=== PATIENT | female | born 1965 | race Caucasian/White ===

== ENCOUNTER → 2017-10-07 | Outpatient (CLI) | payer BC ==
[2017-10-07 15:04] VITALS: BP 112/68; PULSE 53; RESP 18; TEMP 98.1; BMI 39.4
--- NOTE | 2017-10-07 15:34 | P.HPOB ---
History of Present Illness H&P Date: 10/07/17 Chief Complaint: The patient is here for her routine gynecologic exam and mammogram. This is a 51-year-old with an LMP of 05/2015. The patient denies any significant hot flashes. She denies any postmenopausal bleeding. Her is status post vasectomy. Review of Systems The patient has lost 8 pounds over the last year. She denies respiratory, cardiac, or G.I. problems. Past Medical History Past Medical History: GERD/Reflux, Hyperlipidemia Additional Past Medical History / Comment(s): Arthritis. 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 Past OB history: she had a voluntary interruption of because of multiple defects. She also had one spontaneous . One vaginal delivery. History of Any Multi-Drug Resistant Organisms: None Reported Past Surgical History: Bariatric Surgery (Lap band), Cholecystectomy, Orthopedic Surgery (Ankle surgery) Additional Past Surgical History / Comment(s): patient donated left kidney. Colonoscopy 2010. Past Psychological History: Depression (Seasonal affective disorder.) Smoking Status: Never smoker Past Alcohol Use History: Occasional (7 per week) Additional Past Alcohol Use History / Comment(s): She denies any medical marijuana, marijuana, street drug use. She lives at home with her and daughter. 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 - Past Family History Father Family Medical History: Cancer (colon), Myocardial Infarction ([place]) Additional Family Medical History / Comment(s): Father at age 81 with history of colon cancer and coronary artery disease. Mother Additional Family Medical History / Comment(s): Mother is alive at age 76 with no major medical problems. Sister(s) Additional Family Medical History / Comment(s): Patient has 3 sisters and 1 brother with no major medical problems. Patient has one daughter with no major medical problems. Medications and Allergies Home Medications Medication Instructions Recorded Confirmed Type Omeprazole [PriLOSEC] 40 mg PO DAILY 08/25/15 10/07/17 History Simvastatin [Zocor] 20 mg PO HS 08/25/15 10/07/17 History buPROPion XL [Wellbutrin XL] 150 mg PO DAILY 08/25/15 10/07/17 History Cyclobenzaprine [Flexeril] 10 mg PO TID PRN 08/30/15 10/07/17 History Allergies Allergy/AdvReac Type Severity Reaction Status Date / Time adhesive tape Allergy Rash/Hives Verified 10/07/17 15:06 Exam Vital Signs Temp Pulse Resp BP 10/07/17 14:55 98.1 F 53 L 18 112/68 Intake and Output 10/07/17 10/07/17 10/07/17 06:59 14:59 22:59 Other: Weight 101.151 kg Height 5'3", BMI 39.5. This is a well-developed well-nourished heavyset white female who is alert and oriented times 3 in no acute distress. HEENT: Within normal limits. NECK: Supple without mass or thyromegaly. CHEST AND LUNGS: Clear to auscultation. HEART: Regular rate and rhythm. BREASTS: Are without mass or discharge. AXILLARY EXAM: Negative for adenopathy. BACK: Negative for CVA tenderness. ABDOMEN: Soft, obese, nontender, without palpable masses. PELVIC EXAM: Normal external genitalia with minimal atrophy. Cervix and vagina appear normal with minimal atrophy. There is no unusual discharge. There is no evidence of prolapse. The uterus is midposition, nongravid size and nontender. There are no palpable adnexal masses or tenderness. RECTAL EXAM: rectovaginal exam is negative for mass or tenderness and is negative for occult blood. EXTREMITIES: Nontender. IMPRESSION: 1. 51-year-old menopausal female normal gynecologic exam. PLAN: 1. Pap smear was deferred since she had a normal one less than 2 years ago. 2. Self breast awareness was discussed. 3. Mammogram will be done today. 4. Osteoporosis prevention was discussed. 5. She will return in one year.
--- NOTE | 2017-10-13 13:46 | MM ---
Reason for exam: screening (asymptomatic). Last mammogram was performed 1 year and 9 months ago. History: Patient had first child at age 40. Took hormonal contraceptives for 3 years 6 months beginning at age 35. Physical Findings: A clinical breast exam by your physician is recommended on an annual basis and results should be correlated with mammographic findings. MG 3D Screening Mammo W/Cad Bilateral CC and MLO view(s) were taken. Prior study comparison: January 09, 2016, bilateral MG 3d screening mammo w/cad. September 21, 2013, bilateral MG screening mammo w CAD. The breast tissue is almost entirely fat. No significant changes when compared with prior studies. ASSESSMENT: Benign, BI-RAD 2 RECOMMENDATION: Routine screening mammogram of both breasts in 1 year.
== END | disposition home or self-care (01) ==
LOC: WWCWWP 14:41
PROVIDERS: ATTEND Obstetrics & Gynecology
DX: Z12.31 Encounter for screening mammogram for malignant neoplasm of breast (principal)
CPT/HCPCS: 77063; 77067

== ENCOUNTER → 2018-03-16 | Outpatient (CLI) | payer BC ==
--- NOTE | 2018-03-16 14:37 | P.HPBAR ---
Bariatric H&P - History & Physicial H&P Date: 03/16/18 History & Physicial: Visit/CC: Patient initial contact: Initial weight: 112.945 kg Initial weight in pounds: Height: Initial BMI: Last weight: Current weight: Current weight in pounds: Current BMI: [place] body weight (based on NIH guidelines): Excess body weight loss: The patient is a 52 year-old F who presents for Bariatric Assessment. Patient presents today. She is at issues with reflux. Her band is empty. The reflux has been going on for over 6 months. Past Medical History Past Medical History: GERD/Reflux, Hyperlipidemia Additional Past Medical History / Comment(s): Arthritis. 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 Past OB history: she had a voluntary interruption of because of multiple defects. She also had one spontaneous . One vaginal delivery. History of Any Multi-Drug Resistant Organisms: None Reported Past Surgical History: Bariatric Surgery (Lap band), Cholecystectomy, Orthopedic Surgery (Ankle surgery) Additional Past Surgical History / Comment(s): patient donated left kidney. Colonoscopy 2010. Past Psychological History: Depression (Seasonal affective disorder.) Smoking Status: Never smoker Past Alcohol Use History: Occasional (7 per week) Additional Past Alcohol Use History / Comment(s): She denies any medical marijuana, marijuana, street drug use. She lives at home with her and daughter. Past Drug Use History: None Reported - Past Family History Father Family Medical History: Cancer (colon), Myocardial Infarction ([place]) Additional Family Medical History / Comment(s): Father at age 81 with history of colon cancer and coronary artery disease. Mother Additional Family Medical History / Comment(s): Mother is alive at age 76 with no major medical problems. Sister(s) Additional Family Medical History / Comment(s): Patient has 3 sisters and 1 brother with no major medical problems. Patient has one daughter with no major medical problems. Surgical - Exam - General well developed, well nourished, no distress - Eyes PERRL - ENT normal pinna - Neck no masses - Respiratory normal expansion - Cardiovascular Rhythm: regular - Abdomen Abdomen: soft, non tender Bariatric Assessment & Plan Plan: Dysphagia and reflux with empty LAP-BAND. Patient will undergo esophagram today. She may require explantation of her LAP-BAND device. Bariatric Checklist Checklist: Plan: Checklist: EGD: 1. Hiatal hernia: 2. H. Pylori: HgbA1c: Vitamin D: Smoking: Never smoker Primary care physician referral: Psychiatry clearance: Cardiology clearance: Sleep study: Diet journal: VTE risk score: VTE risk level: Rehab needs at discharge:
[2018-03-16 15:07] VITALS: BP 138/85; PULSE 85; TEMP 98.2; BMI 38.0
--- NOTE | 2018-03-16 15:14 | FL ---
"EXAMINATION TYPE: FL barium swallow DATE OF EXAM: 03/16/2018 LAP BANDING LIMITED ESOPHAGRAM: CLINICAL HISTORY: History of lap band placed 2002 with dysphagia, GERD, and difficulty swallowing ov er last several months, all fill removed several months ago without improvement. TECHNIQUE: Limited esophagram is performed utilizing 2-3 oz of ez paque. A total of 68 seconds of fl uoroscopic time was utilized during procedure. 18 images are sent to PACS. COMPARISON: CT abdomen and pelvis August 26, 2015 and prior esophagram August 24, 2015. FINDINGS: Pre-procedure manager department image shows lap band in stable and satisfactory position and angle i n proximal stomach just below the gastroesophageal junction. Cholecystectomy clips are redemonstrated . The patient then drank oral contrast. There could flow of contrast along the course of the esophagus. There is marked delay in flow of contrast along the course of the lap band, there is no evidence of contrast extravasation to suggest leak. There is constant reflux of contrast up to proximal esophagea l level with esophageal dilatation. Patient has symptoms of nausea. Approximately 15 to [address] drinking contrast only small trickle of contrast through the lap band into distal stomach is iden tified, majority of contrast remains in mid to distal esophagus extending up to level of aortic arch. IMPRESSION: There is severe obstruction at lap band site without convincing evidence of lap band slip page. Images saved for ordering surgeon. A Yellow level critical message alert has been initiated for Jamie Holden MD via the [facility] | Critical Results System on 03/16/2018 3:11 PM. This message alert has been sent to Jamie pimentel MD via the preferences provided by the clinician for the receipt of Radiology Critical Findings. Makenna essage ID [id number]."
== END ==
LOC: BARWHC3 13:40
PROVIDERS: ATTEND Surgery
DX: K21.9 Gastro-esophageal reflux disease without esophagitis (principal); R13.10 Dysphagia, unspecified; K95.09 Other complications of gastric band procedure; K91.30 Postprocedural intestinal obstruction, unspecified as to partial versus complete; Z98.84 Bariatric surgery status; Z90.49 Acquired absence of other specified parts of digestive tract
CPT/HCPCS: 74220; 99211

== ENCOUNTER → 2018-03-23 | Outpatient (CLI) | payer BC ==
[2018-03-23 14:26] LABS: Basophils % (A) 1 %; Eosinophils # (A) 0.2 k/uL (0-0.7); Eosinophils % (A) 4 %; HCT 39.8 % (34.0-46.0); HGB 13.1 gm/dL (11.4-16.0); Lymphocytes # (A) 2.1 k/uL (1.0-4.8); Lymphocytes % (A) 43 %; MCH 29.4 pg (25.0-35.0); MCHC 32.9 g/dL (31.0-37.0); MCV 89.2 fL (80.0-100.0); Mean Platelet Volume 6.8; Monocytes # (A) 0.3 k/uL (0-1.0); Monocytes % (A) 6 %; Neutrophils # (A) 2.2 k/uL (1.3-7.7); Neutrophils % (A) 44 %; Platelet Count 337 k/uL (150-450); RBC 4.46 m/uL (3.80-5.40); RDW 13.3 % (11.5-15.5); WBC 4.9 k/uL (3.8-10.6)
[2018-03-23 14:31] LABS: Calcium 9.2 mg/dL (8.4-10.2); Potassium 4.2 mmol/L (3.5-5.1); Total Bilirubin 0.4 mg/dL (0.2-1.3); Total Protein 6.6 g/dL (6.3-8.2)
== END ==
LOC: LABPAT 12:41
PROVIDERS: ATTEND Surgery
DX: Z01.812 Encounter for preprocedural laboratory examination (principal)
CPT/HCPCS: 36415; 80053; 85025; 93005

== ENCOUNTER 2018-03-26 06:46 | Day surgery (SDC) | payer BC ==
[2018-03-24 15:57] VITALS: BMI 38.9
[~2018-03-26 06:46] MED LIST: DEXAMETHASONE SOD PHOSPHATE 10 MG/ML 1 ML VIAL IV ONE; HYDROmorphone 0.5 MG/0.5 ML SYRINGE IVP PRN; LACTATED RINGERS 1,000 ML IV SCH; LIDOCAINE 1% 20 ML VIAL (10MG/ML) FOR IV START INTRADERMA PRN; ONDANSETRON 4 MG/2 ML VIAL IVP ONE; ceFAZolin IN SWFI 2 GM/20 ML SYRINGE IVP ONE; fentaNYL (PF) 50 MCG/ML 2 ML AMP IV PRN
[2018-03-26] MEDS ORDERED: FAMOTIDINE 20 MG/2 ML VIAL IV ONE (07:26)
[2018-03-26] MEDS ORDERED: METOCLOPRAMIDE 5 MG/ML 2 ML VIAL IVP ONE (07:27)
--- NOTE | 2018-03-26 07:55 | P.GSHP ---
History of Present Illness H&P Date: 03/26/18 Chief Complaint: Dysphagia,. This is a 52-year-old female who's had issues with Dysphagia and GERD. Her recent esophagram shows high-grade obstruction at the LAP-BAND site. Her LAP- BAND has been empty for quite some time. She presents today for removal of LAP- BAND system Past Medical History Past Medical History: GERD/Reflux, Hyperlipidemia, Sleep Apnea/CPAP/BIPAP Additional Past Medical History / Comment(s): Donated left kidney. No CPAP use. History of Any Multi-Drug Resistant Organisms: None Reported Past Surgical History: Bariatric Surgery, Cholecystectomy, Orthopedic Surgery Additional Past Surgical History / Comment(s): Donated left kidney, colonoscopy. Past Anesthesia/Blood Transfusion Reactions: No Reported Reaction Additional Psychological History / Comment(s): Seasonal Affective Disorder. Smoking Status: Never smoker Past Alcohol Use History: Occasional Past Drug Use History: None Reported - Past Family History Father Family Medical History: Cancer, Myocardial Infarction ([place]) Additional Family Medical History / Comment(s): Father at age 81 with history of colon cancer and coronary artery disease. Mother Additional Family Medical History / Comment(s): Mother is alive at age 76 with no major medical problems. Sister(s) Additional Family Medical History / Comment(s): Patient has 3 sisters and 1 brother with no major medical problems. Patient has one daughter with no major medical problems. Medications and Allergies Home Medications Medication Instructions Recorded Confirmed Type Omeprazole [PriLOSEC] 40 mg PO HS 08/25/15 03/26/18 History Simvastatin [Zocor] 20 mg PO HS 08/25/15 03/26/18 History buPROPion XL [Wellbutrin XL] 150 mg PO HS 08/25/15 03/26/18 History Cyclobenzaprine [Flexeril] 10 mg PO TID PRN 08/30/15 03/26/18 History Allergies Allergy/AdvReac Type Severity Reaction Status Date / Time adhesive tape Allergy Rash/Hives Verified 03/26/18 06:59 Surgical - Exam Vital Signs Temp Pulse Resp BP Pulse Ox 97.8 F 76 16 117/74 96 03/26/18 07:11 03/26/18 07:11 03/26/18 07:11 03/26/18 07:11 03/26/18 07:11 - General well developed, well nourished, no distress - Eyes PERRL - ENT normal pinna - Neck no masses - Respiratory normal expansion - Cardiovascular Rhythm: regular - Abdomen Abdomen: soft, non tender Assessment and Plan Assessment: GERD, dysphagia due to LAP-BAND system. Patient will have the LAP-BAND system removed today.
[2018-03-26] MEDS ORDERED: MIDAZOLAM 2 MG/2 ML VIAL ONE (07:58)
[2018-03-26] MEDS ORDERED: LIDOCAINE 1% INJ 10MG/ML (20 ML MDV) ONE (07:58)
[2018-03-26] MEDS ORDERED: ePHEDrine SULFATE/0.9% NACL/PF 50 MG/5 ML SYRINGE IV ONE (07:58)
[2018-03-26] MEDS ORDERED: ROCURONIUM BROMIDE 10 MG/ML 10 ML VIAL IV ONE (07:58)
[2018-03-26] MEDS ORDERED: ESMOLOL 100 MG/10 ML VIAL ONE (07:58)
[2018-03-26] MEDS ORDERED: SUCCINYLCHOLINE CHLORIDE 100 MG/5 ML SYR IV ONE (07:58)
[2018-03-26] MEDS ORDERED: PROPOFOL 10 MG/ML 20 ML VIAL IV ONE (07:58)
[2018-03-26] MEDS ORDERED: NEOSTIGMINE 1 MG/ML 10 ML VIAL ONE (07:58)
[2018-03-26] MEDS ORDERED: KETOROLAC 30 MG/ML 1 ML VIAL ONE (07:58)
[2018-03-26] MEDS ORDERED: GLYCOPYRROLATE 0.2 MG/ML 2 ML VIAL ONE (07:58)
[2018-03-26] MEDS ORDERED: fentaNYL (PF) 50 MCG/ML 2 ML AMP ONE (07:58)
[2018-03-26] MEDS ORDERED: HYDROmorphone (PF) 1 MG/ML ONE (07:58)
[2018-03-26] MEDS ORDERED: BUPIVACAIN-EPI 0.5%-1:200,000 30 ML VIAL SQ ONE (08:47)
[2018-03-26] MEDS ORDERED: LACTATED RINGERS 1,000 ML IV ONE (09:29)
[2018-03-26 09:56] VITALS: TEMP 97.1
--- NOTE | 2018-03-26 10:13 | P.OP ---
Date of Procedure: 03/26/18 Preoperative Diagnosis: Dysphagia Postoperative Diagnosis: Dysphagia Procedure(s) Performed: Removal LAP-BAND system Lysis of adhesions Anesthesia: MORGAN Surgeon: Jamie Holden Estimated Blood Loss (ml): 20 Pathology: other (LAP-BAND) Condition: stable Disposition: PACU Description of Procedure: The patient's placed on the operating table in supine position. She received general anesthesia. Her abdomen was prepped and draped in usual sterile fashion. She had been placed in dorsal lithotomy position. The skin incision sites were anesthetized 1% local Xylocaine. Then using 11 blade the skin was incised the port site. Using left cautery the LAP-BAND port was dissected free from the abdominal wall. The connecting tube was then cut. Next a 5 mm blade less trocar was placed under direct vision into the. Cavity. The abdomen was insufflated and then after insufflation the 5 mm laparoscope was placed back into the Cavity. There were adhesions noted along the midline and lungs the stomach. These were lysed using sharp dissection. Next a 5 mm trochars placed in the right and left lateral position. And then a another fibrillar trocar is placed in the right epigastric position in the left lateral lobe of liver was retracted. The original 5 mm trocar was exchanged for a 15 mm trocar. Stomach was visualized. The adhesions to the LAP-BAND device was then lysed using left cautery. And then the LAP-BAND device was freed. The buckle was cut and the LAP-BAND device was withdrawn from around stomach. There is no evidence of any injury of stomach to the stomach or esophagus. The LAP-BAND device is brought up through the 15 mm trocar site. The abdomen was irrigated there is no bleeding seen. The trochars withdrawn. The fascia of the 15 mm trocar site was closed with 0 Vicryl. Skin was closed interrupted 3-0 Monocryl suture. Dermabond was applied. Patient top she will well and was sent to recovery room stable condition.
[2018-03-26] MEDS ORDERED: HYDROcodone/APAP 7.5-325MG 1 EACH TAB PO ONE ×2 (10:53→11:26)
[2018-03-26 11:35] VITALS: BP 126/83; PULSE 94; RESP 18
== END 2018-03-26 12:19 | disposition home or self-care (01) ==
LOC: OR 06:46
PROVIDERS: ATTEND Surgery
DX: K95.09 Other complications of gastric band procedure (principal); K56.699 Other intestinal obstruction unspecified as to partial versus complete obstruction; K66.0 Peritoneal adhesions (postprocedural) (postinfection); K21.9 Gastro-esophageal reflux disease without esophagitis; E78.5 Hyperlipidemia, unspecified; G47.33 Obstructive sleep apnea (adult) (pediatric); F33.9 Major depressive disorder, recurrent, unspecified; Z99.89 Dependence on other enabling machines and devices; Z79.899 Other long term (current) drug therapy; Z90.5 Acquired absence of kidney; Z91.048 Other nonmedicinal substance allergy status
CPT/HCPCS: 43774; J2250; J1100; J2710; J2765; J2405; J2001; J3010; J1885; J1170; J0330; J2704; J0690

== ENCOUNTER → 2018-04-06 | Outpatient (CLI) | payer BC ==
[2018-04-06 14:51] VITALS: BP 135/82; PULSE 78; TEMP 98.2; BMI 38.5
--- NOTE | 2018-04-07 09:42 | P.HPBAR ---
Bariatric H&P - History & Physicial H&P Date: 04/06/18 History & Physicial: Visit/CC: post op follow up Patient initial contact: Initial weight: 112.945 kg Initial weight in pounds: 249.00 Height: 5 ft 3.75 in Initial BMI: 43.0 Last weight: Current weight: 101.151 kg Current weight in pounds: 223.00 Current BMI: 38.5 [place] body weight (based on NIH guidelines): 53.864 kg Excess body weight loss: 19.9% The patient is a 52 year-old F who presents for Bariatric Assessment. Patient presents today for postoperative follow-up from removal of LAP-BAND system. Patient is doing quite well. Her incision sites are clean dry tach. She's had she gained 10 pounds. She denies any dysphagia. Past Medical History Past Medical History: GERD/Reflux, Hyperlipidemia Additional Past Medical History / Comment(s): Arthritis. 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 Past OB history: she had a voluntary interruption of because of multiple defects. She also had one spontaneous . One vaginal delivery. History of Any Multi-Drug Resistant Organisms: None Reported Past Surgical History: Bariatric Surgery, Cholecystectomy, Orthopedic Surgery Additional Past Surgical History / Comment(s): patient donated left kidney. Colonoscopy 2010. lap band removal 03-26-18 Past Psychological History: Depression Smoking Status: Never smoker Past Alcohol Use History: Occasional Additional Past Alcohol Use History / Comment(s): She denies any medical marijuana, marijuana, street drug use. She lives at home with her and daughter. Past Drug Use History: None Reported - Past Family History Father Family Medical History: Cancer, Myocardial Infarction ([place]) Additional Family Medical History / Comment(s): Father at age 81 with history of colon cancer and coronary artery disease. Mother Additional Family Medical History / Comment(s): Mother is alive at age 76 with no major medical problems. Sister(s) Additional Family Medical History / Comment(s): Patient has 3 sisters and 1 brother with no major medical problems. Patient has one daughter with no major medical problems. Surgical - Exam Vital Signs Temp Pulse BP 98.2 F 78 135/82 04/06/18 14:47 04/06/18 14:47 04/06/18 14:47 - General well developed, well nourished - Eyes PERRL - ENT normal pinna - Neck no masses - Respiratory normal expansion - Cardiovascular Rhythm: regular - Abdomen Incision sites clean dry tach Abdomen: soft, non tender Bariatric Assessment & Plan Plan: David post removal LAP-BAND. Patient has lost gastric resection. She'll follow-up in 8 weeks. Bariatric Checklist Checklist: Plan: Checklist: EGD: 1. Hiatal hernia: 2. H. Pylori: HgbA1c: Vitamin D: Smoking: Never smoker Primary care physician referral: laurie puckett Psychiatry clearance: Cardiology clearance: Sleep study: Diet journal: VTE risk score: VTE risk level: Rehab needs at discharge:
== END ==
LOC: BARWHC3 13:42
PROVIDERS: ATTEND Surgery
DX: Z48.815 Encounter for surgical aftercare following surgery on the digestive system (principal); Z98.84 Bariatric surgery status; Z90.49 Acquired absence of other specified parts of digestive tract
CPT/HCPCS: 99211

== ENCOUNTER → 2018-04-24 | Outpatient (CLI) | payer BC ==
[2018-04-24 10:18] VITALS: BP 143/63; PULSE 97; RESP 16; TEMP 98.3; BMI 36.6
--- NOTE | 2018-04-24 10:39 | P.HPBAR ---
Bariatric H&P - History & Physicial H&P Date: 04/24/18 History & Physicial: Visit/CC: band removal follow-up Patient initial contact: Initial weight: 112.945 kg Initial weight in pounds: 249.00 Height: 5 ft 5.75 in Initial BMI: 40.4 Last weight: Current weight: 102.058 kg Current weight in pounds: 225.00 Current BMI: 36.6 [place] body weight (based on NIH guidelines): 58.4 kg Excess body weight loss: 19.9% The patient is a 52 year-old F who presents for Bariatric Assessment. Patient presents today for assessment. She has noticed that the inferior portion of her port site incision is open. There is a 6 mm opening of the incision. She denies any significant drainage. She has no real pain. Past Medical History Past Medical History: GERD/Reflux, Hyperlipidemia Additional Past Medical History / Comment(s): Arthritis. 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 Past OB history: she had a voluntary interruption of because of multiple defects. She also had one spontaneous . One vaginal delivery. History of Any Multi-Drug Resistant Organisms: None Reported Past Surgical History: Bariatric Surgery, Cholecystectomy, Orthopedic Surgery Additional Past Surgical History / Comment(s): patient donated left kidney. Colonoscopy 2010. lap band removal 03-26-18 Past Psychological History: Depression Smoking Status: Never smoker Past Alcohol Use History: Occasional Additional Past Alcohol Use History / Comment(s): She denies any medical marijuana, marijuana, street drug use. She lives at home with her and daughter. Past Drug Use History: None Reported - Past Family History Father Family Medical History: Cancer, Myocardial Infarction ([place]) Additional Family Medical History / Comment(s): Father at age 81 with history of colon cancer and coronary artery disease. Mother Additional Family Medical History / Comment(s): Mother is alive at age 76 with no major medical problems. Sister(s) Additional Family Medical History / Comment(s): Patient has 3 sisters and 1 brother with no major medical problems. Patient has one daughter with no major medical problems. Surgical - Exam Vital Signs Temp Pulse Resp BP 98.3 F 97 16 143/63 04/24/18 10:13 04/24/18 10:13 04/24/18 10:13 04/24/18 10:13 - General well developed, well nourished, no distress - Eyes PERRL - Abdomen Abdomen soft. Her scalp incision sites are well healed. At the port site incision there is a 6 mm opening. There is no significant drainage. There is no evidence of any cellulitis. Bariatric Assessment & Plan Plan: Small 6 mm chronic wound at the previous LAP-BAND port site. Patient will apply local wound care. There is no evidence of any significant infection. Bariatric Checklist Checklist: Plan: Checklist: EGD: 1. Hiatal hernia: 2. H. Pylori: HgbA1c: Vitamin D: Smoking: Never smoker Primary care physician referral: laurie puckett Psychiatry clearance: Cardiology clearance: Sleep study: Diet journal: VTE risk score: VTE risk level: Rehab needs at discharge:
== END | disposition home or self-care (01) ==
LOC: BARWHC3 09:45
PROVIDERS: ATTEND Surgery
DX: T81.89XA Other complications of procedures, not elsewhere classified, initial encounter (principal); Z09 Encounter for follow-up examination after completed treatment for conditions other than malignant neoplasm; K21.9 Gastro-esophageal reflux disease without esophagitis; E78.5 Hyperlipidemia, unspecified; F32.9 Major depressive disorder, single episode, unspecified; Z90.49 Acquired absence of other specified parts of digestive tract; Z98.890 Other specified postprocedural states; Z98.84 Bariatric surgery status
CPT/HCPCS: 99211

== ENCOUNTER → 2019-04-06 | Outpatient (CLI) | payer BC ==
[2019-04-06 11:02] VITALS: BP 122/83; PULSE 75; RESP 18; TEMP 97.7
--- NOTE | 2019-04-06 11:37 | P.HPOB ---
History of Present Illness H&P Date: 04/06/19 Chief Complaint: The patient is here for her routine gynecologic exam and ma mmogram. This is a 53-year-old 0-1 with an LMP of 2016. The patient is without gynecologic complaints and denies any postmenopausal bleeding. Her is status post vasectomy. Review of Systems She has gained about 30 pounds over the past year. She had her lap band removed this past year. She denies respiratory, cardiac, or GI problems. Past Medical History Past Medical History: GERD/Reflux, Hyperlipidemia Additional Past Medical History / Comment(s): Arthritis. 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 Past OB history: she had a voluntary interruption of because of multiple defects. She also had one spontaneous . One vaginal delivery. History of Any Multi-Drug Resistant Organisms: None Reported Past Surgical History: Bariatric Surgery, Cholecystectomy, Orthopedic Surgery Additional Past Surgical History / Comment(s): patient donated left kidney. Colonoscopy 2015. lap band removal 03-26-18. Left knee replacement surgery. Past Psychological History: Depression Smoking Status: Never smoker Past Alcohol Use History: Occasional (4-5 per week) Additional Past Alcohol Use History / Comment(s): She denies any medical marijuana, marijuana, street drug use. She lives at home with her and daughter. 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 - Past Family History Father Family Medical History: Cancer, Myocardial Infarction ([place]) Additional Family Medical History / Comment(s): Father at age 81 with history of colon cancer and coronary artery disease. Mother Additional Family Medical History / Comment(s): Mother is alive at age 76 with no major medical problems. Sister(s) Additional Family Medical History / Comment(s): Patient has 3 sisters and 1 brother with no major medical problems. Patient has one daughter with no major medical problems. Medications and Allergies Home Medications Medication Instructions Recorded Confirmed Type Omeprazole [PriLOSEC] 40 mg PO HS 08/25/15 04/06/19 History Simvastatin [Zocor] 20 mg PO HS 08/25/15 04/06/19 History buPROPion XL [Wellbutrin XL] 150 mg PO DAILY 08/25/15 04/06/19 History Cyclobenzaprine [Flexeril] 10 mg PO TID PRN 08/30/15 04/06/19 History Allergies Allergy/AdvReac Type Severity Reaction Status Date / Time adhesive tape Allergy Rash/Hives Verified 04/06/19 11:04 Exam Vital Signs Temp Pulse Resp BP Pulse Ox 04/06/19 10:58 97.7 F 75 18 122/83 99 Intake and Output 04/05/19 04/06/19 04/06/19 22:59 06:59 14:59 Other: Weight 115.212 kg Height 5 feet 2 inches, weight 254 pounds, BMI 46.5. This is a well-developed well-nourished heavyset white female who is alert and oriented times 3 in no acute distress. HEENT: Within normal limits. NECK: Supple without mass or thyromegaly. CHEST AND LUNGS: Clear to auscultation. HEART: Regular rate and rhythm. BREASTS: Are without mass or discharge. AXILLARY EXAM: Negative for adenopathy. BACK: Negative for CVA tenderness. ABDOMEN: Soft, nontender, without palpable masses. PELVIC EXAM: Normal external genitalia with minimal atrophy. Cervix and vagina appear normal with minimal atrophy. There is no unusual discharge. There is no evidence of prolapse. The uterus is midposition, nongravid size and nontender. There are no palpable adnexal masses or tenderness. RECTAL EXAM: Rectovaginal exam is negative for mass or tenderness and is positive for occult blood. EXTREMITIES: Nontender. IMPRESSION: 1. 53-year-old menopausal female with normal gynecologic exam. 2. Hemoccult positive stool on exam today. PLAN: 1. Pap smear was performed. 2. Self breast awareness was discussed with the patient. 3. Screening mammogram will be done today. 4. Osteoporosis prevention was previously discussed and she is declining the handout on this. 5. She states she will see Dr. Varela for workup on the Hemoccult positive stool. She will call his office today for this. He has done her colonoscopies in the past. 6. She was advised to return in one year for her annual well woman exam.
--- NOTE | 2019-04-07 09:56 | MM ---
Reason for exam: screening (asymptomatic). Last mammogram was performed 1 year and 6 months ago. History: Patient had first child at age 40. Took hormonal contraceptives for 3 years 6 months beginning at age 35. Physical Findings: A clinical breast exam by your physician is recommended on an annual basis and results should be correlated with mammographic findings. MG 3D Screening Mammo W/Cad Bilateral CC and MLO view(s) were taken. Prior study comparison: October 07, 2017, bilateral MG 3d screening mammo w/cad. January 09, 2016, bilateral MG 3d screening mammo w/cad. There are scattered fibroglandular densities. No significant changes when compared with prior studies. ASSESSMENT: Benign, BI-RAD 2 RECOMMENDATION: Routine screening mammogram of both breasts in 1 year.
== END | disposition home or self-care (01) ==
LOC: WWCWWP 10:33
PROVIDERS: ATTEND Obstetrics & Gynecology
DX: Z12.31 Encounter for screening mammogram for malignant neoplasm of breast (principal)
CPT/HCPCS: 77063; 77067

== ENCOUNTER → 2019-04-19 | Day surgery (SDC) | payer BC ==
[2019-04-14 15:59] VITALS: BMI 40.7
[~2019-04-19] MED LIST changes: -DEXAMETHASONE SOD PHOSPHATE 10 MG/ML 1 ML VIAL IV ONE; -HYDROmorphone 0.5 MG/0.5 ML SYRINGE IVP PRN; +LIDOCAINE 1% (10MG/ML) FOR IV START INTRADERMA PRN; +LIDOCAINE 1% (10MG/ML) FOR IV START SQ ONE; -LIDOCAINE 1% 20 ML VIAL (10MG/ML) FOR IV START INTRADERMA PRN; -ONDANSETRON 4 MG/2 ML VIAL IVP ONE; +PROPOFOL 10 MG/ML 20 ML VIAL IV ONE; -ceFAZolin IN SWFI 2 GM/20 ML SYRINGE IVP ONE; -fentaNYL (PF) 50 MCG/ML 2 ML AMP IV PRN
[2019-04-19 09:20] VITALS: RESP 16; TEMP 97.9
--- NOTE | 2019-04-19 09:48 | P.GSHP ---
History of Present Illness H&P Date: 04/19/19 Chief Complaint: Screening colonoscopy This a 53-year-old female presents today for screening colonoscopy. Patient denies a significant GI complaints. Past Medical History Past Medical History: GERD/Reflux, Hyperlipidemia Additional Past Medical History / Comment(s): Arthritis. 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 Past OB history: she had a voluntary interruption of because of multiple defects. She also had one spontaneous . One vaginal delivery. History of Any Multi-Drug Resistant Organisms: None Reported Past Surgical History: Bariatric Surgery, Cholecystectomy, Joint Replacement, Orthopedic Surgery Additional Past Surgical History / Comment(s): patient donated left kidney. Colonoscopy 2016. lap band removal 03-26-18. Left knee replacement surgery.ORIF LT ANKLE Past Anesthesia/Blood Transfusion Reactions: Motion Sickness Smoking Status: Never smoker - Past Family History Father Family Medical History: Cancer, Myocardial Infarction ([place]) Additional Family Medical History / Comment(s): Father at age 81 with history of colon cancer and coronary artery disease. Mother Additional Family Medical History / Comment(s): Mother is alive at age 76 with no major medical problems. Sister(s) Additional Family Medical History / Comment(s): Patient has 3 sisters and 1 brother with no major medical problems. Patient has one daughter with no major medical problems. Medications and Allergies Home Medications Medication Instructions Recorded Confirmed Type Omeprazole [PriLOSEC] 40 mg PO HS 08/25/15 04/19/19 History Simvastatin [Zocor] 20 mg PO HS 08/25/15 04/19/19 History buPROPion XL [Wellbutrin XL] 150 mg PO DAILY 08/25/15 04/19/19 History Cyclobenzaprine [Flexeril] 10 mg PO TID PRN 08/30/15 04/19/19 History Aspirin 325 mg PO DAILY PRN 04/19/19 04/19/19 History Allergies Allergy/AdvReac Type Severity Reaction Status Date / Time adhesive tape Allergy Rash/Hives Verified 04/14/19 15:54 Surgical - Exam Vital Signs Temp Pulse Resp BP Pulse Ox 97.9 F 83 16 134/64 94 L 04/19/19 09:19 04/19/19 09:19 04/19/19 09:19 04/19/19 09:19 04/19/19 09:19 - General well developed, well nourished, no distress - Eyes PERRL - ENT normal pinna - Neck no masses - Respiratory normal expansion - Cardiovascular Rhythm: regular - Abdomen Abdomen: soft, non tender Assessment and Plan Assessment: We'll perform screening colonoscopy.
[2019-04-19 10:20] VITALS: BP 124/74; PULSE 77
--- NOTE | 2019-04-26 15:21 | P.OP ---
Date of Procedure: 04/19/19 Preoperative Diagnosis: History of colonic Polyps Postoperative Diagnosis: Mild diverticulosis Procedure(s) Performed: Colonoscopy Anesthesia: MAC Surgeon: Jamie Holden Pathology: none sent Condition: stable Disposition: PACU Description of Procedure: PROCEDURE: The patient was placed on the endoscopy table in the lateral position. Digital rectal examination was performed which revealed no abnormalities. The colonoscope was then advanced patient's anus and passed throughout the entire colon. The ileocecal valve was visualized. The cecum, ascending and transverse colon appeared normal. In the descending; was mild diverticular changes. The scope was then brought back the rectum and this a ppeared normal. Scope withdrawn for patient.
== END ==
LOC: ORWHC2ENDO 08:56
PROVIDERS: ATTEND Surgery
DX: Z12.11 Encounter for screening for malignant neoplasm of colon (principal); K57.30 Diverticulosis of large intestine without perforation or abscess without bleeding; Z86.010 Personal history of colon polyps; E78.5 Hyperlipidemia, unspecified; F32.9 Major depressive disorder, single episode, unspecified; E66.01 Morbid (severe) obesity due to excess calories; K21.9 Gastro-esophageal reflux disease without esophagitis; M19.90 Unspecified osteoarthritis, unspecified site; Z91.048 Other nonmedicinal substance allergy status; Z79.899 Other long term (current) drug therapy; Z98.84 Bariatric surgery status; Z90.49 Acquired absence of other specified parts of digestive tract; Z68.41 Body mass index [BMI] 40.0-44.9, adult; Z90.5 Acquired absence of kidney; Z96.652 Presence of left artificial knee joint; Z82.49 Family history of ischemic heart disease and other diseases of the circulatory system
CPT/HCPCS: J2704; G0105

== ENCOUNTER 2020-01-05 19:11 | Observation (INO) | payer BC ==
[2020-01-05] MEDS ORDERED: SODIUM CHLORIDE 0.9% 1,000 ML IV STA (19:25)
--- NOTE | 2020-01-05 19:26 | ED ---
SOB HPI - General Chief Complaint: Shortness of Breath Stated Complaint: SOB Time Seen by Provider: 01/05/20 19:25 Source: patient, RN notes reviewed, old records reviewed Mode of arrival: ambulatory Limitations: no limitations - History of Present Illness Initial Comments: This is a 54-year-old female DF for chest pain history of high cholesterol histo ry of family history of heart disease coming heaviness on the chest heaviness on the chest some occasional shortness of breath especially with exertion. Otherwise no travel show sick contacts no fevers MD Complaint: shortness of breath, cough -: days(s) Severity: moderate Severity scale (1-10): 4 Quality: other (Heaviness) Consistency: constant Improves With: nothing Worsens With: other (Heaviness) Context: recent URI Associated Symptoms: chest pain - Related Data Home Medications Medication Instructions Recorded Confirmed Simvastatin [Zocor] 20 mg PO HS 08/25/15 01/05/20 Cbd Oil 2 drops PO BID 01/05/20 01/05/20 Joint Health Supplement 1 tab PO DAILY 01/05/20 01/05/20 Melatonin 10 mg PO HS PRN 01/05/20 01/05/20 Multivitamins, Thera [Multivitamin 1 tab PO DAILY 01/05/20 01/05/20 (formulary)] Omeprazole 20 mg PO DAILY 01/05/20 01/05/20 buPROPion HCL [Wellbutrin SR] 150 mg PO DAILY 01/05/20 01/05/20 cycloSPORINE 0.05% OPHTH SOLN 1 drop BOTH EYES BID 01/05/20 01/05/20 [Restasis] Allergies Allergy/AdvReac Type Severity Reaction Status Date / Time adhesive tape Allergy Rash/Hives Verified 01/05/20 20:20 Review of Systems ROS Statement: Those systems with pertinent positive or pertinent negative responses have been documented in the HPI. ROS Other: All systems not noted in ROS Statement are negative. Past Medical History Past Medical History: GERD/Reflux, Hyperlipidemia Additional Past Medical History / Comment(s): Arthritis. 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 Past OB history: she had a voluntary interruption of because of multiple defects. She also had one spontaneous abo rtion. One vaginal delivery. History of Any Multi-Drug Resistant Organisms: None Reported Past Surgical History: Bariatric Surgery, Cholecystectomy, Joint Replacement, Orthopedic Surgery Additional Past Surgical History / Comment(s): patient donated left kidney. Colonoscopy 2016. lap band removal 03-26-18. Left knee replacement surgery.ORIF LT ANKLE Past Anesthesia/Blood Transfusion Reactions: Motion Sickness Past Psychological History: Depression Smoking Status: Never smoker Past Alcohol Use History: Occasional Past Drug Use History: None Reported - Past Family History Father Family Medical History: Cancer, Myocardial Infarction ([place]) Additional Family Medical History / Comment(s): Father at age 81 with history of colon cancer and coronary artery disease. Mother Additional Family Medical History / Comment(s): Mother is alive at age 76 with no major medical problems. Sister(s) Additional Family Medical History / Comment(s): Patient has 3 sisters and 1 brother with no major medical problems. Patient has one daughter with no major medical problems. General Exam Limitations: no limitations General appearance: alert, in no apparent distress Head exam: Present: atraumatic, normocephalic, normal inspection Eye exam: Present: normal appearance, PERRL, EOMI. Absent: scleral icterus, conjunctival injection, periorbital swelling ENT exam: Present: normal exam, mucous membranes moist Neck exam: Present: normal inspection. Absent: tenderness, meningismus, lymphadenopathy Respiratory exam: Present: normal lung sounds bilaterally. Absent: respiratory distress, wheezes, rales, rhonchi, stridor Cardiovascular Exam: Present: regular rate, normal rhythm, normal heart sounds. Absent: systolic murmur, diastolic murmur, rubs, gallop, clicks GI/Abdominal exam: Present: soft, normal bowel sounds. Absent: distended, tenderness, guarding, rebound, rigid Extremities exam: Present: normal inspection, full ROM, normal capillary refill. Absent: tenderness, pedal edema, joint swelling, calf tenderness Back exam: Present: normal inspection Neurological exam: Present: alert, oriented X3, CN II-XII intact Psychiatric exam: Present: normal affect, normal mood Skin exam: Present: warm, dry, intact, normal color. Absent: rash Course Vital Signs 01/05/20 01/05/20 01/05/20 19:14 19:50 20:00 Temperature 98.2 F Pulse Rate 75 69 Respiratory 17 16 18 Rate Blood Pressure O2 Sat by Pulse 99 100 Oximetry 11/11/20 11/11/20 11/11/20 20:30 20:46 21:00 Temperature Pulse Rate 71 72 74 Respiratory 18 18 18 Rate Blood Pressure 122/72 122/72 O2 Sat by Pulse 100 100 100 Oximetry 01/05/20 21:30 Temperature Pulse Rate 77 Respiratory 16 Rate Blood Pressure 121/66 O2 Sat by Pulse 99 Oximetry - Reevaluation(s) Reevaluation #1: 01/05/20 21:54 medical records reviewed Reevaluation #2: 01/05/20 21:54 Patient still has heaviness on her chest Reevaluation #3: 01/05/20 21:54 Spoke patient regarding findings and questions have been answered - Consultations Consultation #1: Spoke with Bear Engel for admission he agrees Medical Decision Making - Medical Decision Making 54 female DF for evaluation, patient has chest pain shortness of breath will admit for chest pain observation - Lab Data Result diagrams: 01/05/20 19:32 01/05/20 19:32 Lab Results 01/05/20 01/05/20 01/05/20 Range/Units 19:32 19:32 19:32 WBC 6.4 (3.8-10.6) k/uL RBC 4.64 (3.80-5.40) m/uL Hgb 13.1 (11.4-16.0) gm/dL Hct 40.9 (34.0-46.0) % MCV 88.3 (80.0-100.0) fL MCH 28.3 (25.0-35.0) pg MCHC 32.1 (31.0-37.0) g/dL RDW 13.5 (11.5-15.5) % Plt Count 322 (150-450) k/uL MPV 7.1 Neutrophils % 50 % Lymphocytes % 37 % Monocytes % 5 % Eosinophils % 5 % Basophils % 1 % Neutrophils # 3.2 (1.3-7.7) k/uL Lymphocytes # 2.4 (1.0-4.8) k/uL Monocytes # 0.3 (0-1.0) k/uL Eosinophils # 0.3 (0-0.7) k/uL Basophils # 0.1 (0-0.2) k/uL PT 9.7 (9.0-12.0) sec INR 0.9 (<1.2) APTT 24.4 (22.0-30.0) sec Sodium 139 (137-145) mmol/L Potassium 3.8 (3.5-5.1) mmol/L Chloride 105 (98-107) mmol/L Carbon Dioxide 25 (22-30) mmol/L Anion Gap 9 mmol/L BUN 20 H (7-17) mg/dL Creatinine 0.88 (0.52-1.04) mg/dL Est GFR (CKD-EPI)AfAm 86 (>60 ml/min/1.73 sqM) Est GFR (CKD-EPI)NonAf 75 (>60 ml/min/1.73 sqM) Glucose 99 (74-99) mg/dL Calcium 9.5 (8.4-10.2) mg/dL Magnesium 1.8 (1.6-2.3) mg/dL Total Bilirubin 0.4 (0.2-1.3) mg/dL AST 33 (14-36) U/L ALT 25 (4-34) U/L Alkaline Phosphatase 79 (38-126) U/L Creatine Kinase 111 (30-135) U/L Troponin I (0.000-0.034) ng/mL NT-Pro-B Natriuret Pep pg/mL Total Protein 7.0 (6.3-8.2) g/dL Albumin 4.3 (3.5-5.0) g/dL 01/05/20 01/05/20 Range/Units 19:32 19:32 WBC (3.8-10.6) k/uL RBC (3.80-5.40) m/uL Hgb (11.4-16.0) gm/dL Hct (34.0-46.0) % MCV (80.0-100.0) fL MCH (25.0-35.0) pg MCHC (31.0-37.0) g/dL RDW (11.5-15.5) % Plt Count (150-450) k/uL MPV Neutrophils % % Lymphocytes % % Monocytes % % Eosinophils % % Basophils % % Neutrophils # (1.3-7.7) k/uL Lymphocytes # (1.0-4.8) k/uL Monocytes # (0-1.0) k/uL Eosinophils # (0-0.7) k/uL Basophils # (0-0.2) k/uL PT (9.0-12.0) sec INR (<1.2) APTT (22.0-30.0) sec Sodium (137-145) mmol/L Potassium (3.5-5.1) mmol/L Chloride (98-107) mmol/L Carbon Dioxide (22-30) mmol/L Anion Gap mmol/L BUN (7-17) mg/dL Creatinine (0.52-1.04) mg/dL Est GFR (CKD-EPI)AfAm (>60 ml/min/1.73 sqM) Est GFR (CKD-EPI)NonAf (>60 ml/min/1.73 sqM) Glucose (74-99) mg/dL Calcium (8.4-10.2) mg/dL Magnesium (1.6-2.3) mg/dL Total Bilirubin (0.2-1.3) mg/dL AST (14-36) U/L ALT (4-34) U/L Alkaline Phosphatase (38-126) U/L Creatine Kinase (30-135) U/L Troponin I <0.012 (0.000-0.034) ng/mL NT-Pro-B Natriuret Pep 82 pg/mL Total Protein (6.3-8.2) g/dL Albumin (3.5-5.0) g/dL - EKG Data -: EKG Interpreted by Me (EKG sinus rhythm 87 VA 160 QRS 88 QTc 464) - Radiology Data Radiology results: report reviewed (Chest x-rays negative for acute disease), im age reviewed Disposition Clinical Impression: Chest pain Disposition: ADMITTED IP TO THIS HOSP Condition: Fair Is patient prescribed a controlled substance at d/c from ED?: No Referrals: Bear Engel DO [Primary Care Provider] - 1-2 days
[2020-01-05 20:03] LABS: Basophils # (A) 0.1 k/uL (0-0.2); Basophils % (A) 1 %; Eosinophils # (A) 0.3 k/uL (0-0.7); Eosinophils % (A) 5 %; HCT 40.9 % (34.0-46.0); HGB 13.1 gm/dL (11.4-16.0); Lymphocytes # (A) 2.4 k/uL (1.0-4.8); Lymphocytes % (A) 37 %; MCH 28.3 pg (25.0-35.0); MCHC 32.1 g/dL (31.0-37.0); MCV 88.3 fL (80.0-100.0); Mean Platelet Volume 7.1; Monocytes # (A) 0.3 k/uL (0-1.0); Monocytes % (A) 5 %; Neutrophils # (A) 3.2 k/uL (1.3-7.7); Neutrophils % (A) 50 %; Platelet Count 322 k/uL (150-450); RBC 4.64 m/uL (3.80-5.40); RDW 13.5 % (11.5-15.5); WBC 6.4 k/uL (3.8-10.6)
[2020-01-05 20:12] LABS: INR 0.9 (<1.2); Partial Thromboplastin Time 24.4 sec (22.0-30.0); Prothrombin Time 9.7 sec (9.0-12.0)
[2020-01-05 20:14] LABS: Albumin 4.3 g/dL (3.5-5.0); Calcium 9.5 mg/dL (8.4-10.2); Magnesium 1.8 mg/dL (1.6-2.3); Potassium 3.8 mmol/L (3.5-5.1); Total Bilirubin 0.4 mg/dL (0.2-1.3)
--- NOTE | 2020-01-05 20:53 | XR ---
EXAMINATION TYPE: XR chest 2V DATE OF EXAM: 01/05/2020 COMPARISON: 08/25/2015 HISTORY: Difficulty breathing TECHNIQUE: FINDINGS: Heart and mediastinum are normal. Lungs are clear. Diaphragm is normal. Bony thorax appears normal. The pulmonary vascularity is normal. There are chest leads. IMPRESSION: No active cardiopulmonary disease. No change.
[2020-01-05] MEDS ORDERED: MORPHINE SULFATE 4 MG/ML SYRINGE IV PRN (21:52)
[2020-01-05] MEDS ORDERED: ASPIRIN 81 MG PO STA (21:52)
[2020-01-05] MEDS ORDERED: NITROGLYCERIN SL TABS 0.4 MG TAB SUBLINGUAL PRN (21:52)
[2020-01-05] MEDS: SODIUM CHLORIDE 0.9% 1,000 ML IV SCH (22:20)
[2020-01-06 02:11] VITALS: PULSE 90
[2020-01-06 06:19] LABS: Cholesterol 131 mg/dL (<200); HDL Cholesterol 62 mg/dL (40-60); LDL Cholesterol,Calculated 43 mg/dL (0-99); Triglycerides 128 mg/dL (<150)
[2020-01-06] MEDS: SODIUM CHLORIDE 0.9% 1,000 ML IV SCH (08:42)
[2020-01-06] MEDS ORDERED: ASPIRIN 325 MG TAB PO SCH (09:00)
[2020-01-06] MEDS ORDERED: METOPROLOL TARTRATE 25 MG TAB PO SCH (09:00)
[2020-01-06] MEDS ORDERED: ASPIRIN 81 MG PO SCH (09:00)
[2020-01-06] MEDS ORDERED: PANTOPRAZOLE 40 MG TABLET PO SCH (09:15)
[2020-01-06] MEDS ORDERED: MELATONIN 5 MG TABLET PO PRN (09:28)
[2020-01-06] MEDS ORDERED: DOBUTamine DRIP for NUC MED 500 MG in DEXTROSE/WATER 1 250ML.BAG IV ONE (09:30)
--- NOTE | 2020-01-06 09:42 | P.CRDCN ---
History of Present Illness History of present illness: HISTORY OF PRESENTING ILLNESS This is a pleasant 54-year-old female past medical history significant for dyslipidemia, arthritis, gastroesophageal reflux disease and single kidney secondary to patient donation. She denies prior history of coronary artery disease and does not follow with a tare man for any reason. Her father had bypass surgery in his 50s and her mother has atrial fibrillation. We have been asked to see in consultation for chest pain. She states for the previous couple weeks she has noticed shortness of breath with exertion. She states she walks regularly and recently her walks have been complicated by mild shortness of breath. Yesterday she noticed a heavy sensation across her chest there was no radiation to the arm, back, neck or jaw. She denies any associated palpitations, nausea, vomiting or diaphoresis. The chest discomfort is intermittent and not related to activity or exertion. Currently she is chest pain-free. DIAGNOSTICS EKG reveals his mechanism with no acute ST or T wave abnormalities noted. Chest xray negative for an acute cardiopulmonary process. Laboratory reviewed, CBC unremarkable, sodium 139, potassium 3.8, creatinine 0.88, magnesium 1.8, cardiac enzymes negative 3, NT proBNP 82, LDL 43 and HDL 62. Current cardiac medications include simvastatin 20 mg daily. REVIEW OF SYSTEMS At the time of my exam: CONSTITUTIONAL: Denies fever or chills. CARDIOVASCULAR: Denies chest pain, shortness of breath, orthopnea, PND or palpitations. RESPIRATORY: Denies cough. GASTROINTESTINAL: Denies abdominal pain, diarrhea, constipation, nausea or vomiting. MUSCULOSKELETAL: Denies myalgias. NEUROLOGIC: Denies numbness, tingling or weakness. ENDOCRINE: Denies fatigue, weight change, polydipsia or polyurina. GENITOURINARY: Denies burning, hematuria or urgency with micturation. HEMATOLOGIC: Denies history of anemia or bleeding. PHYSICAL EXAMINATION Blood pressure 108/67 heart rate 90 afebrile and maintaining oxygen saturation on room air. CONSTITUTIONAL: No apparent distress. Obese. HEENT: Head is normocephalic. Pupils are equal, round. Sclerae anicteric. Mucous membranes of the mouth are moist. No JVD. No carotid bruit. CHEST EXAMINATION: Lungs are clear to auscultation. No chest wall tenderness is noted on palpation or with deep breathing. HEART EXAMINATION: Regular rate and rhythm. S1, S2 heard. No murmurs, gallops or rub. ABDOMEN: Soft, nontender. Positive bowel sounds. EXTREMITIES: 2+ peripheral pulses, no lower extremity edema and no calf tenderness. NEUROLOGIC EXAMINATION: Patient is awake, alert and oriented x3. ASSESSMENT Chest pain and exertional shortness of breath Dyslipidemia, well controlled on current regimen Gastroesophageal reflux disease Single kidney secondary to kidney donation Morbid obesity, BMI 46 PLAN An acute coronary event has been ruled out. Cholesterol is well controlled on current regimen and blood pressure is normal. Check a d-dimer. Obtain 2-D echocardiogram and Doppler study to assess cardiac structure and function. Perform dobutamine stress echocardiogram to assess for stress-induced cardiac ischemia. If stress test is normal she may be discharged to follow-up with Dr. Willoughby in the outpatient setting. Lifestyle modifications recommended for weight loss. Thank you kindly for this consultation. Nurse Practitioner note has been reviewed, I agree with a documented findings and plan of care. Patient was seen and examined. Past Medical History Past Medical History: GERD/Reflux, Hyperlipidemia Additional Past Medical History / Comment(s): Arthritis, Past OB history: she had a voluntary interruption of because of multiple defects. She also had one spontaneous . One vaginal delivery. History of Any Multi-Drug Resistant Organisms: None Reported Past Surgical History: Bariatric Surgery, Cholecystectomy, Joint Replacement, Orthopedic Surgery Additional Past Surgical History / Comment(s): patient donated left kidney. Colonoscopy 2019. lap band removal 03-26-18. Left knee replacement surgery.ORIF LT ANKLE Past Anesthesia/Blood Transfusion Reactions: Motion Sickness Past Psychological History: Depression Smoking Status: Never smoker Past Alcohol Use History: Occasional Past Drug Use History: None Reported - Past Family History Father Family Medical History: Cancer, Myocardial Infarction ([place]) Additional Family Medical History / Comment(s): Father at age 81 with hist ory of colon cancer and coronary artery disease. Mother Additional Family Medical History / Comment(s): Mother is alive at age 76 with no major medical problems. Sister(s) Additional Family Medical History / Comment(s): Patient has 3 sisters and 1 brother with no major medical problems. Patient has one daughter with no major medical problems. Medications and Allergies Home Medications Medication Instructions Recorded Confirmed Type Simvastatin [Zocor] 20 mg PO HS 08/25/15 01/05/20 History Cbd Oil 2 drops PO BID 01/05/20 01/05/20 History Joint Health Supplement 1 tab PO DAILY 01/05/20 01/05/20 History Melatonin 10 mg PO HS PRN 01/05/20 01/05/20 History Multivitamins, Thera [Multivitamin 1 tab PO DAILY 01/05/20 01/05/20 History (formulary)] Omeprazole 20 mg PO DAILY 01/05/20 01/05/20 History buPROPion HCL [Wellbutrin SR] 150 mg PO DAILY 01/05/20 01/05/20 History cycloSPORINE 0.05% OPHTH SOLN 1 drop BOTH EYES BID 01/05/20 01/05/20 History [Restasis] Allergies Allergy/AdvReac Type Severity Reaction Status Date / Time adhesive tape Allergy Rash/Hives Verified 01/05/20 22:50 Physical Exam Vitals: Vital Signs Temp Pulse Pulse Resp BP BP Pulse Ox 01/06/20 02:10 97.6 F 90 18 108/67 99 01/05/20 23:18 97.6 F 79 18 147/89 99 01/05/20 21:30 77 16 121/66 99 01/05/20 21:00 74 18 122/72 100 01/05/20 20:46 72 18 122/72 100 01/05/20 20:30 71 18 100 01/05/20 20:00 69 18 100 01/05/20 19:50 16 01/05/20 19:14 98.2 F 75 17 99 Intake and Output 01/05/20 01/06/20 01/06/20 22:59 06:59 14:59 Other: Voiding Method Toilet # Voids 2 Weight 117.934 kg Results 01/05/20 19:32 01/05/20 19:32 Cardiac Enzymes 01/05/20 01/05/20 01/05/20 Range/Units 19:32 19:32 22:40 AST 33 (14-36) U/L Troponin I <0.012 <0.012 (0.000-0.034) ng/mL 01/06/20 Range/Units 02:22 AST (14-36) U/L Troponin I <0.012 (0.000-0.034) ng/mL Coagulation 01/05/20 Range/Units 19:32 PT 9.7 (9.0-12.0) sec APTT 24.4 (22.0-30.0) sec Lipids 01/06/20 Range/Units 02:22 Triglycerides 128 (<150) mg/dL Cholesterol 131 (<200) mg/dL HDL Cholesterol 62 H (40-60) mg/dL CBC 01/05/20 Range/Units 19:32 WBC 6.4 (3.8-10.6) k/uL RBC 4.64 (3.80-5.40) m/uL Hgb 13.1 (11.4-16.0) gm/dL Hct 40.9 (34.0-46.0) % Plt Count 322 (150-450) k/uL Comprehensive Metabolic Panel 01/05/20 Range/Units 19:32 Sodium 139 (137-145) mmol/L Potassium 3.8 (3.5-5.1) mmol/L Chloride 105 (98-107) mmol/L Carbon Dioxide 25 (22-30) mmol/L BUN 20 H (7-17) mg/dL Creatinine 0.88 (0.52-1.04) mg/dL Glucose 99 (74-99) mg/dL Calcium 9.5 (8.4-10.2) mg/dL AST 33 (14-36) U/L ALT 25 (4-34) U/L Alkaline Phosphatase 79 (38-126) U/L Total Protein 7.0 (6.3-8.2) g/dL Albumin 4.3 (3.5-5.0) g/dL Current Medications Generic Name Dose Route Start Last Admin Trade Name Freq PRN Reason Stop Dose Admin Aspirin 81 mg 01/06/20 09:00 Aspirin 325 Mg Tab PO DAILY AMA Sodium Chloride 1,000 mls @ 100 mls/hr 01/05/20 22:00 01/06/20 08:42 Saline 0.9% IV 100 mls/hr .Q10H AMA Administration Morphine Sulfate 4 mg 01/05/20 21:52 Morphine Sulfate 4 Mg/Ml Syringe IV Q4HR PRN Chest Pain Nitroglycerin 0.4 mg 01/05/20 21:52 Nitroglycerin Sl Tabs 0.4 Mg Tab SUBLINGUAL Q5M PRN Chest Pain Intake and Output 01/05/20 01/06/20 01/06/20 22:59 06:59 14:59 Other: Voiding Method Toilet # Voids 2 Weight 117.934 kg 01/05/20 19:32 01/05/20 19:32
[2020-01-06] MEDS ORDERED: cycloSPORINE 0.05% OPHTH 0.4 ML DROPERETTE BOTH EYES SCH (09:45)
[2020-01-06] MEDS ORDERED: buPROPion SR 150 MG TABLET.ER PO SCH (09:45)
[2020-01-06 09:56] VITALS: BP 144/73; RESP 17; TEMP 98.2
--- NOTE | 2020-01-06 13:28 | P.STRESS ---
- Stress Test Note Stress Test Results/Findings: Exam Performed: dobutamine stress echo with con Exam Date: 01/06/20 Reason for Exam: CHEST PAIN, SHORT OF BREATH Height: 5 ft 3 in Weight: 117.93 kg Protocol: DOBUTAMINE STRESS ECHO Stage: III Duration of Exercise: 8:23 Resting Heart Rate: 72 Resting Blood Pressure: 110/64 Maximum Achieved Heart Rate: 148 Maximum Achieved Blood Pressure: 132/46 85% PMHR: 140 100% PMHR: 165 METS: N/A Technologist Comment: Stress Test Results/Findings: Baseline heart is 72 beats a minute, Baseline blood pressure 110/64 mmHg Baseline telemetry ECG shows normal sinus rhythm with normal cardiac intervals normal ST segments baseline artifact 2-D echo images were suboptimal and therefore contrast echo was used Patient received dobutamine infusion per protocol. Peak heart rate 148 beats a minute. Normal blood pressure response Occasional PVCs noted Baseline 2-D echo which showed normal LV systolic function without segmental wall motion abnormalities With dobutamine is a stepwise improvement on overall LV contractility without development of any wall motion abnormalities @Recovery reasonable LV systolic function remained normal Impression No ECG or echocardiographic evidence for ischemia Occasional PVCs
--- NOTE | 2020-01-06 14:05 | P.HPIM ---
History of Present Illness H&P Date: 01/06/20 Chief Complaint: Chest pain History and physical and Discharge Summary This is a 54-year-old female with past medical history of gastroesophageal reflux disease, hyperlipidemia, depression, single kidney, family history of CAD and multiple other medical issues presented to the ER with complaints of midsternal heaviness, nonradiating, intermittent with minimal shortness of breath. Denies nausea vomiting diarrhea or diaphoresis. Denies cough, congestion or chills. Reports she has been under significant stress. Chest pain is nonreproducible. EKG reported normal sinus rhythm. Chest x-ray reported no acute cardiopulmonary disease. Troponins negative 3. Hematology, coagulation, chemistry unremarkable with the exception of BUN 20. Creatinine 0.88. Trigly cerides 128, cholesterol 131, LDL 43, HDL 62. Review of Systems ROS Statement: Those systems with pertinent positive or pertinent negative responses have been documented in the HPI. ROS Other: All systems not noted in ROS Statement are negative. Past Medical History Past Medical History: GERD/Reflux, Hyperlipidemia Additional Past Medical History / Comment(s): Arthritis, Past OB history: she had a voluntary interruption of because of multiple defects. She also had one spontaneous . One vaginal delivery. History of Any Multi-Drug Resistant Organisms: None Reported Past Surgical History: Bariatric Surgery, Cholecystectomy, Joint Replacement, Orthopedic Surgery Additional Past Surgical History / Comment(s): patient donated left kidney. Colonoscopy 2019. lap band removal 03-26-18. Left knee replacement surgery.ORIF LT ANKLE Past Anesthesia/Blood Transfusion Reactions: Motion Sickness Past Psychological History: Depression Smoking Status: Never smoker Past Alcohol Use History: Occasional Past Drug Use History: None Reported - Past Family History Father Family Medical History: Cancer, Myocardial Infarction ([place]) Additional Family Medical History / Comment(s): Father at age 81 with history of colon cancer and coronary artery disease. Mother Additional Family Medical History / Comment(s): Mother is alive at age 76 with no major medical problems. Sister(s) Additional Family Medical History / Comment(s): Patient has 3 sisters and 1 brother with no major medical problems. Patient has one daughter with no major medical problems. Medications and Allergies Home Medications Medication Instructions Recorded Confirmed Type Simvastatin [Zocor] 20 mg PO HS 08/25/15 01/05/20 History Cbd Oil 2 drops PO BID 01/05/20 01/05/20 History Joint Health Supplement 1 tab PO DAILY 01/05/20 01/05/20 History Melatonin 10 mg PO HS PRN 01/05/20 01/05/20 History Multivitamins, Thera [Multivitamin 1 tab PO DAILY 01/05/20 01/05/20 History (formulary)] Omeprazole 20 mg PO DAILY 01/05/20 01/05/20 History buPROPion HCL [Wellbutrin SR] 150 mg PO DAILY 01/05/20 01/05/20 History cycloSPORINE 0.05% OPHTH SOLN 1 drop BOTH EYES BID 01/05/20 01/05/20 History [Restasis] Allergies Allergy/AdvReac Type Severity Reaction Status Date / Time adhesive tape Allergy Rash/Hives Verified 01/05/20 22:50 Physical Exam Vitals: Vital Signs Temp Pulse Pulse Resp BP BP Pulse Ox 01/06/20 02:10 97.6 F 90 18 108/67 99 01/05/20 23:18 97.6 F 79 18 147/89 99 01/05/20 21:30 77 16 121/66 99 01/05/20 21:00 74 18 122/72 100 01/05/20 20:46 72 18 122/72 100 01/05/20 20:30 71 18 100 01/05/20 20:00 69 18 100 01/05/20 19:50 16 01/05/20 19:14 98.2 F 75 17 99 Intake and Output 01/05/20 01/06/20 01/06/20 22:59 06:59 14:59 Other: Voiding Method Toilet # Voids 2 Weight 117.934 kg PHYSICAL EXAM: VITAL SIGNS: As above GENERAL: Sitting up in bed, no acute distress, anxious HEENT: Conjunctivae normal. eyes normal. Oral mucosa dry. NECK: No JVD. No thyroid enlargement. No LNs CARDIOVASCULAR: S1, S2 regular.. No murmur RESPIRATION: Breath sounds diminished in the bases. No rhonchi or crackles. No bronchial breathing. ABDOMEN: Soft, nontender . No guarding. no masses palpable. No ascites, No hepatosplenomegaly.Bowel sounds heard. LEGS: Mild chronic left lower extremity edema. PSYCHIATRY: Alert and oriented X3, mood and affect normal. NERVOUS SYSTEM: Cranial N 2-12 grossly normal. Moves all 4 limbs. No focal deficits. Strength and sensation grossly intact.. Skin: Warm and dry, no rash Lymphatic system. No LN neck axilla. Results CBC & Chem 7: 01/05/20 19:32 01/05/20 19:32 Labs: Abnormal Lab Results - Last 24 Hours (Table) 01/05/20 01/06/20 Range/Units 19:32 02:22 BUN 20 H (7-17) mg/dL HDL Cholesterol 62 H (40-60) mg/dL Thrombosis Risk Factor Assmnt - Choose All That Apply Any of the Below Risk Factors Present?: Yes Each Factor Represents 1 point: Age 41-60 years, Obesity (BMI >25) Other Risk Factors: No Other congenital or acquired thrombophilia - If yes, enter type in comment: No Thrombosis Risk Factor Assessment Total Risk Factor Score: 2 Thrombosis Risk Factor Assessment Level: Low Risk Assessment and Plan Assessment: Acute chest pain, described as heaviness, in a patient under significant stress Morbid obesity, BMI 46.1 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 Evaluated by cardiology and patient is scheduled for dobutamine stress test. Patient will be discharged home today in a stable condition with guarded prognosis, pending dobutamine stress test results, final DC recommendations and clearance from cardiology. Follow up with PCP in 3 days to continue working on resources to assist with stress relief. The impression and plan of care has been dictated as directed. : I performed a history and examination of this patient, discussed the same with the dictator. I agree with the dictator's note ,documented as a scribe. Any additional findings or plans will be noted.
[2020-01-06] MEDS ORDERED: ATORVASTATIN 10 MG TAB PO SCH (21:00)
[2020-01-07] MEDS ORDERED: MULTIVITAMINS, THERA 1 EACH TAB PO SCH (09:00)
== END 2020-01-06 14:34 | disposition home or self-care (01) ==
LOC: EC 19:11 → 1SOBS 21:52
PROVIDERS: ADMIT Family Medicine; ATTEND Family Medicine
DX: R07.89 Other chest pain (principal); R06.02 Shortness of breath; R05 Cough; E78.00 Pure hypercholesterolemia, unspecified; K21.9 Gastro-esophageal reflux disease without esophagitis; M19.90 Unspecified osteoarthritis, unspecified site; E78.5 Hyperlipidemia, unspecified; F32.9 Major depressive disorder, single episode, unspecified; E66.01 Morbid (severe) obesity due to excess calories; Z68.42 Body mass index [BMI] 45.0-49.9, adult; Z96.652 Presence of left artificial knee joint; Z79.899 Other long term (current) drug therapy; Z91.048 Other nonmedicinal substance allergy status; Z90.49 Acquired absence of other specified parts of digestive tract; Z90.5 Acquired absence of kidney; Z98.84 Bariatric surgery status; Z63.8 Other specified problems related to primary support group; Z82.49 Family history of ischemic heart disease and other diseases of the circulatory system; Z80.0 Family history of malignant neoplasm of digestive organs
CPT/HCPCS: 96360; 99285; 36415; 93005 ×2; 93306; 93351; 85379; 83880; 80061; 80053; 82550; 83735; 84484 ×2; 85025; 85610; 85730; 71046; G0378 ×2; J1250; S0106; Q9950

== ENCOUNTER → 2020-12-19 | Outpatient (CLI) | payer BC ==
[2020-12-19 16:05] VITALS: BP 132/82; PULSE 87; RESP 18; TEMP 97.9
--- NOTE | 2020-12-19 17:23 | P.HPOB ---
History of Present Illness H&P Date: 12/19/20 Chief Complaint: The patient is here for her routine gynecologic exam and ma mmogram. This is a 55-year-old with an LMP of 2016. The patient is without gynecologic complaints and denies postmenopausal bleeding. Review of Systems The patient has gained 11 pounds over the last 1-1/2 years. She denies respiratory, cardiac, or G.I. problems. Past Medical History Past Medical History: GERD/Reflux, Hyperlipidemia Additional Past Medical History / Comment(s): Arthritis, Past OB history: she had a voluntary interruption of because of multiple defects. She also had one spontaneous . One vaginal delivery. History of Any Multi-Drug Resistant Organisms: None Reported Past Surgical History: Bariatric Surgery, Cholecystectomy, Joint Replacement, Orthopedic Surgery Additional Past Surgical History / Comment(s): patient donated left kidney. lap band removal 03-26-18. Left knee replacement surgery.ORIF LT ANKLE. Colonoscopy 2019(next after 5yr). Past Anesthesia/Blood Transfusion Reactions: Motion Sickness Past Psychological History: Depression Smoking Status: Never smoker Past Alcohol Use History: Occasional Additional Past Alcohol Use History / Comment(s): She denies any medical marijuana, marijuana, street drug use. She lives at home with her and daughter. Past Drug Use History: None Reported - Past Family History Father Family Medical History: Cancer, Coronary Artery Disease (CAD), Myocardial Infarction ([place]) Additional Family Medical History / Comment(s): Breast cancer and colon cancer. Mother Family Medical History: No Reported History Additional Family Medical History / Comment(s): Mother is alive at age 76 with no major medical problems. Sister(s) Additional Family Medical History / Comment(s): Patient has 3 sisters and 1 br other with no major medical problems. Patient has one daughter with no major medical problems. Medications and Allergies Home Medications Medication Instructions Recorded Confirmed Type Simvastatin [Zocor] 20 mg PO HS 08/25/15 12/19/20 History Cbd Oil 2 drops PO BID 01/05/20 12/19/20 History Joint Health Supplement 1 tab PO DAILY 01/05/20 12/19/20 History Melatonin 10 mg PO HS PRN 01/05/20 12/19/20 History Multivitamins, Thera [Multivitamin 1 tab PO DAILY 01/05/20 12/19/20 History (formulary)] Omeprazole 20 mg PO DAILY 01/05/20 12/19/20 History buPROPion HCL [Wellbutrin SR] 150 mg PO DAILY 01/05/20 12/19/20 History cycloSPORINE 0.05% OPHTH SOLN 1 drop BOTH EYES BID 01/05/20 12/19/20 History [Restasis] Allergies Allergy/AdvReac Type Severity Reaction Status Date / Time adhesive tape Allergy Rash/Hives Verified 12/19/20 15:58 Exam Vital Signs Temp Pulse Resp BP Pulse Ox 12/19/20 15:58 97.9 F 87 18 132/82 97 Intake and Output 12/19/20 12/19/20 12/19/20 06:59 14:59 22:59 Other: Weight 120.202 kg Height 5 feet 2-1/2 inches, weight 265 pounds, BMI 47.7. This is a well-developed well-nourished heavyset white female who is alert and oriented times 3 in no acute distress. HEENT: Within normal limits. NECK: Supple without mass or thyromegaly. CHEST AND LUNGS: Clear to auscultation. HEART: Regular rate and rhythm. BREASTS: Are without mass or discharge. AXILLARY EXAM: Negative for adenopathy. BACK: Negative for CVA tenderness. ABDOMEN: Soft, nontender, without palpable masses. PELVIC EXAM: Normal external genitalia with mild atrophy. Cervix and vagina appear normal is mild atrophy. There is no unusual discharge. There is no evidence of prolapse. The uterus is midposition, nongravid size and nontender. There are no palpable adnexal masses or tenderness. Bimanual examination is somewhat limited secondary to her size. RECTAL EXAM: Rectovaginal exam is negative for mass or tenderness and is negative for occult blood. EXTREMITIES: Nontender. IMPRESSION: 1. 55-year-old menopausal female with normal gynecologic exam. 2. Family history of breast cancer and colon cancer in her father. PLAN: 1. Pap smear was deferred since she had a normal one on 04/06/2019. 2. Self breast awareness was discussed with the patient. We have also discussed symptoms associated with inflammatory breast cancer. 3. Screening mammogram was done today. 4. Osteoporosis prevention was discussed. I have stressed the importance of adequate calcium, vitamin D and regular exercise. Recommended amounts of calcium and vitamin D were also discussed. 5. We have had a long discussion regarding her family history of breast cancer and colon cancer in her father. Given the low rate of breast cancer in men and, breast cancer in her father probably increases the risk of her having some type of cancer genetic mutation such as BRCA. We discussed possible cancer genetics counseling and testing. She is interested in pursuing this type of counseling and possible testing. She will be referred to the [facility] cancer genetics program for this. I have recommended that she get as much of her family history regarding medical problems especially cancer in relatives prior to the appointment. 6. She was advised to return in one year for her annual well woman exam.
--- NOTE | 2020-12-21 10:29 | MM ---
Reason for exam: screening (asymptomatic). Last mammogram was performed 1 year and 8 months ago. History: Patient is postmenopausal and had first child at age 40. Family history of breast cancer in father at age 86. Took hormonal contraceptives for 3 years 6 months beginning at age 35. Physical Findings: A clinical breast exam by your physician is recommended on an annual basis and results should be correlated with mammographic findings. MG 3D Screening Mammo W/Cad Bilateral CC and MLO view(s) were taken. Prior study comparison: April 06, 2019, bilateral MG 3d screening mammo w/cad. October 07, 2017, bilateral MG 3d screening mammo w/cad. January 09, 2016, bilateral MG 3d screening mammo w/cad. The breast tissue is almost entirely fat. No significant changes when compared with prior studies. ASSESSMENT: Benign, BI-RAD 2 RECOMMENDATION: Routine screening mammogram of both breasts in 1 year.
== END ==
LOC: WWCWWP 15:39
PROVIDERS: ATTEND Obstetrics & Gynecology
DX: Z12.31 Encounter for screening mammogram for malignant neoplasm of breast (principal); Z01.419 Encounter for gynecological examination (general) (routine) without abnormal findings; K21.9 Gastro-esophageal reflux disease without esophagitis; M19.90 Unspecified osteoarthritis, unspecified site; E78.5 Hyperlipidemia, unspecified; F32.9 Major depressive disorder, single episode, unspecified; Z91.048 Other nonmedicinal substance allergy status; Z79.899 Other long term (current) drug therapy; Z80.3 Family history of malignant neoplasm of breast
CPT/HCPCS: 77063; 77067

== ENCOUNTER → 2022-09-04 | Outpatient (CLI) | payer BC ==
--- NOTE | 2022-09-05 08:47 | MM ---
Reason for Exam: Screening (asymptomatic). Last mammogram was performed 1 year(s) and 9 month(s) ago. Patient History: Menarche at age 10. First Full-Term at age 40. Late child-bearing (after 30). Postmenopausal. Hormonal Contraceptives for 3 years, 6 months, from age 35 until age 40. Father had breast cancer, age 86. Risk Values: Radha 5 year model risk: 1.9%. NCI Lifetime model risk: 11.7%. Prior Study Comparison: 10/07/2017 Bilateral Screening Mammogram, [facility]. 04/06/2019 Bilateral Screening Mammogram, [facility]. 12/19/2020 Bilateral Screening Mammogram, [facility]. Tissue Density: There are scattered fibroglandular densities. Findings: Analyzed By CAD. There is no suspicious group of microcalcifications or new suspicious mass in either breast. Overall Assessment: Negative, BI-RAD 1 Management: Screening Mammogram of both breasts in 1 year. . Patient should continue monthly self-breast exams. A clinical breast exam by your physician is recommended on an annual basis. This exam should not preclude additional follow-up of suspicious palpable abnormalities. Note on Radha scores and lifetime risk: 1. A Radha score greater than 3% is considered moderate risk. If this is the case, consider specialist referral to assess eligibility for a risk reducing agent. 2. If overall lifetime risk for the development of breast cancer is 20% or higher, the patient may qualify for future screening with alternating mammogram and breast MRI. Electronically signed and approved by: Niko Beltre M.D. Radiologis
== END | disposition home or self-care (01) ==
LOC: RADMAMWWP 07:34
PROVIDERS: ATTEND Family Medicine
DX: Z12.31 Encounter for screening mammogram for malignant neoplasm of breast (principal); Z80.3 Family history of malignant neoplasm of breast; Z78.0 Asymptomatic menopausal state
CPT/HCPCS: 77063; 77067

== ENCOUNTER → 2023-10-28 | Outpatient (CLI) | payer BC ==
--- NOTE | 2023-11-02 11:20 | MM ---
Reason for Exam: Screening (asymptomatic). Last mammogram was performed 1 year(s) and 2 month(s) ago. Patient History: Menarche at age 10. First Full-Term at age 40. Late child-bearing (after 30). Postmenopausal. Hormonal Contraceptives for 3 years, 6 months, from age 35 until age 40. Father had breast cancer, age 86. Risk Values: Radha 5 year model risk: 2.1%. NCI Lifetime model risk: 11.2%. Prior Study Comparison: 04/06/2019 Bilateral Screening Mammogram, [facility]. 12/19/2020 Bilateral Screening Mammogram, [facility]. 09/04/2022 Bilateral MG 3D screening mammo w/cad, [facility]. Tissue Density: The breasts are almost entirely fatty. Findings: Analyzed By CAD. Right breast: There is no suspicious group of microcalcifications or new suspicious mass. Left breast: There is no suspicious group of microcalcifications or new suspicious mass. Overall Assessment: Negative, BI-RAD 1 Management: Screening Mammogram of both breasts in [address] [facility] will attempt to contact patient to return for supplemental views and ultrasound if indicated. Patient should continue monthly self-breast exams. A clinical breast exam by your physician is recommended on an annual basis. This exam should not preclude additional follow-up of suspicious palpable abnormalities. Note on Radha scores and lifetime risk: 1. A Radha score greater than 3% is considered moderate risk. If this is the case, consider specialist referral to assess eligibility for a risk reducing agent. 2. If overall lifetime risk for the development of breast cancer is 20% or higher, the patient may qualify for future screening with alternating mammogram and breast MRI. Electronically signed and approved by: Cristino Callaway DO
== END | disposition home or self-care (01) ==
LOC: RADMAMWWP 07:42
PROVIDERS: ATTEND Family Medicine
DX: Z12.31 Encounter for screening mammogram for malignant neoplasm of breast
CPT/HCPCS: 77063; 77067

== ENCOUNTER 2023-12-28 18:13 | Emergency (ER) | payer BC ==
[2023-12-28 18:23] VITALS: RESP 16; TEMP 98.2
--- NOTE | 2023-12-28 18:37 | ED ---
Neck Injury/Pain HPI - General Chief Complaint: Neck Pain/Injury Stated Complaint: Neck injury/pain Time Seen by Provider: 12/28/23 18:30 Source: patient, RN notes reviewed Mode of arrival: ambulatory Limitations: no limitations - History of Present Illness Initial Comments: 58-year-old female presented to emergency department chief complaint of neck holly n/stiffness. Patient states that on she accidentally walked into a metal screen door that caused injury to her neck and. Patient states over the last few days she has been having increased difficulty with range of motion of her neck and has been endorsing a mild headache as well. She denies radicular symptoms such as paresthesias or loss of strength of bilateral upper extremities. Is prescribed muscle relaxers to take as needed from her primary care provider for chronic back pain and states that she took 1 yesterday with some relief. - Related Data Home Medications Medication Instructions Recorded Confirmed Simvastatin [Zocor] 20 mg PO HS 08/25/15 12/19/20 Cbd Oil 2 drops PO BID 01/05/20 12/19/20 Joint Health Supplement 1 tab PO DAILY 01/05/20 12/19/20 Melatonin [Melatonin ER] 10 mg PO HS PRN 01/05/20 12/19/20 Multivitamins, Thera [Multivitamin 1 tab PO DAILY 01/05/20 12/19/20 (formulary)] Omeprazole 20 mg PO DAILY 01/05/20 12/19/20 buPROPion HCL [Wellbutrin SR] 150 mg PO DAILY 01/05/20 12/19/20 cycloSPORINE 0.05% OPHTH SOLN 1 drop BOTH EYES BID 01/05/20 12/19/20 [Restasis] Previous Rx's Medication Instructions Recorded Ketorolac [Toradol] 10 mg PO Q8HR #15 tab 12/28/23 Allergies Allergy/AdvReac Type Severity Reaction Status Date / Time adhesive tape Allergy Rash/Hives Verified 12/28/23 18:23 Review of Systems ROS Statement: Those systems with pertinent positive or pertinent negative responses have been documented in the HPI. ROS Other: All systems not noted in ROS Statement are negative. Past Medical History Past Medical History: GERD/Reflux, Hyperlipidemia Additional Past Medical History / Comment(s): Arthritis, Past OB history: she had a voluntary interruption of because of multiple defects. She also had one spontaneous . One vaginal delivery. History of Any Multi-Drug Resistant Organisms: None Reported Past Surgical History: Bariatric Surgery, Cholecystectomy, Joint Replacement, Orthopedic Surgery Additional Past Surgical History / Comment(s): patient donated left kidney. lap band removal 03-26-18. Left knee replacement surgery.ORIF LT ANKLE. Colonoscopy 2019(next after 5yr). Past Anesthesia/Blood Transfusion Reactions: Motion Sickness Past Psychological History: Depression Smoking Status: Never smoker Past Alcohol Use History: Occasional Past Drug Use History: None Reported - Past Family History Father Family Medical History: Cancer, Coronary Artery Disease (CAD), Myocardial Infarction ([place]) Additional Family Medical History / Comment(s): Breast cancer and colon cancer. Mother Family Medical History: No Reported History Additional Family Medical History / Comment(s): Mother is alive at age 76 with no major medical problems. Sister(s) Additional Family Medical History / Comment(s): Patient has 3 sisters and 1 brother with no major medical problems. Patient has one daughter with no major medical problems. General Exam Limitations: no limitations General appearance: alert, in no apparent distress Head exam: Present: atraumatic, normocephalic, normal inspection Eye exam: Present: normal appearance, PERRL, EOMI. Absent: scleral icterus, conjunctival injection, periorbital swelling Neck exam: Present: normal inspection, tenderness (with ROM). Absent: meningismus, full ROM, lymphadenopathy Respiratory exam: Present: normal lung sounds bilaterally. Absent: respiratory distress, wheezes, rales, rhonchi, stridor Cardiovascular Exam: Present: regular rate, normal rhythm, normal heart sounds. Absent: systolic murmur, diastolic murmur, rubs, gallop, clicks GI/Abdominal exam: Present: soft, normal bowel sounds. Absent: distended, tenderness, guarding, rebound, rigid Extremities exam: Present: normal inspection, full ROM, normal capillary refill. Absent: tenderness, pedal edema, joint swelling, calf tenderness Course Vital Signs 12/28/23 18:20 Temperature 98.2 F Pulse Rate 90 Respiratory 16 Rate Blood Pressure 108/65 O2 Sat by Pulse 95 Oximetry Medical Decision Making - Medical Decision Making Was pt. sent in by a medical professional or institution (, PA, COMPUTERIZED TABLE CUTTER, urgent care, hospital, or snf...) When possible be specific @ -No Did you speak to anyone other than the patient for history (EMS, parent, family, police, friend...)? What history was obtained from this source @ -No Did you review nursing and triage notes (agree or disagree)? Why? @ -I reviewed and agree with nursing and triage notes Were old charts reviewed (outside hosp., previous admission, EMS record, old EKG, old radiological studies, urgent care reports/EKG's, snf records)? Report findings @ -No old charts were reviewed Differential Diagnosis (chest pain, altered mental status, abdominal pain women, abdominal pain men, vaginal bleeding, weakness, fever, dyspnea, syncope, headache, dizziness, GI bleed, back pain, seizure, CVA, palpatations, mental health, musculoskeletal)? @ -Differential Musculoskeletal Muscular strain, contusion, ligament sprain, fracture, arthritis, septic arthritis, bursitis, cellulitis, muscle spasm, nerve compression, DVT, arterial occlusion, herpes zoster, electrolyte abnormality, tumor.... This is not meant to be in all inclusive list EKG interpreted by me (3pts min.). @ -None X-rays interpreted by me (1pt min.). @ -None done CT interpreted by me (1pt min.). @ -CT of the head and cervical spine without IV contrast reveals no acute intracranial process or evidence of cervical spine fracture with no evidence of significant spinal canal narrowing or neural foraminal stenosis U/S interpreted by me (1pt. min.). @ -None done What testing was considered but not performed or refused? (CT, X-rays, U/S, labs)? Why? @ -None What meds were considered but not given or refused? Why? @ -None Did you discuss the management of the patient with other professionals (professionals i.e. , PA, COMPUTERIZED TABLE CUTTER, lab, RT, psych nurse, social media intern, inclusion manager, teacher, business liaison officer, counter caser)? Give summary @ -No Was smoking cessation discussed for >3mins.? @ -No Was critical care preformed (if so, how long)? @ -No Were there social determinants of health that impacted care today? How? (Homelessness, low income, unemployed, alcoholism, drug addiction, trans portation, low edu. Level, literacy, decrease access to med. care, prison, rehab)? @ -No Was there de-escalation of care discussed even if they declined (Discuss DNR or withdrawal of care, Hospice)? DNR status @ -No What co-morbidities impacted this encounter? (DM, HTN, Smoking, COPD, CAD, Cancer, CVA, ARF, Chemo, Hep., AIDS, mental health diagnosis, sleep apnea, morbid obesity)? @ -None Was patient admitted / discharged? Hospital course, mention meds given and route, prescriptions, significant lab abnormalities, going to OR and other pertinent info. @ -Discharge. 58-year-old female with neck pain and stiffness. On my evaluation patient noted to be sitting upright in the hospital bed. Patient has pain with palpation of the cervical neck and on rotation and flexion and extension. Patient has 2+ strength of bilateral upper extremities and no neurological deficits. Patient is provided with dose of Toradol and muscle relaxer will be sent for CT imaging for further evaluation. She is in agreement with this plan. On reevaluation, patient states that medications have somewhat alleviated her symptoms. CT of the cervical spine no acute process. Is provided with starter pack of ibuprofen 600 and prescription for Toradol. Patient does have prescription for Flexeril. Recommend that she continue to rest and use heat as needed. All questions have been answered at bedside and strict return parameters have been discussed with the patient she is verbalized understanding. Case discussed with Dr. Choi Undiagnosed new problem with uncertain prognosis? @ -No Drug Therapy requiring intensive monitoring for toxicity (Heparin, Nitro, Insulin, Cardizem)? @ -No Were any procedures done? @ -No Diagnosis/symptom? @ -cervical neck strain Acute, or Chronic, or Acute on Chronic? @ -acute Uncomplicated (without systemic symptoms) or Complicated (systemic symptoms)? @ -uncomplicated Side effects of treatment? @ -No Exacerbation, Progression, or Severe Exacerbation? @ -No Poses a threat to life or bodily function? How? (Chest pain, [place], [place], pneumonia, PE, COPD, DKA, ARF, appy, cholecystitis, CVA, Diverticulitis, Homicidal, Suicidal, threat to staff... and all critical care pts) @ -No Disposition Clinical Impression: Neck strain Disposition: HOME SELF-CARE Condition: Good Instructions (If sedation given, give patient instructions): Cervical Strain (ED) Additional Instructions: Please return to the Emergency Department if symptoms worsen or any other concerns. Continue to take Flexeril you have as prescribed and take Toradol up to three times per day as needed. Prescriptions: Ketorolac [Toradol] 10 mg PO Q8HR #15 tab Is patient prescribed a controlled substance at d/c from ED?: No Referrals: Bear Engel DO [Primary Care Provider] - 1-2 days Time of Disposition: 19:42
[2023-12-28] MEDS: KETOROLAC 15 MG/ML 1 ML VIAL IM STA (18:43)
[2023-12-28] MEDS: ORPHENADRINE 30 MG/ML 2 ML VIAL IM STA (18:44)
--- NOTE | 2023-12-28 19:32 | CT ---
EXAMINATION TYPE: CT brain cspine wo con DATE OF EXAM: 12/28/2023 7:08 PM COMPARISON: None. CLINICAL INDICATION: Female, 58 years old with history of neck pain, REEVES following injury 3 days ago; neck pain, REEVES following injury 3 days ago TECHNIQUE: Brain: Multiple axial CT images of the brain were obtained without IV contrast. Cspine: Axial CT images from the skull base to the inferior aspect of T2 we obtained without intraven ous contrast. Coronal and sagittal reformatted images were also reviewed. . CT DLP: 1385.6 mGycm, Automated exposure control for dose reduction was used. FINDINGS: Brain: Extra-axial spaces: No abnormal extra-axial fluid collections. Ventricular system: Within normal limits Cerebral parenchyma: No acute intraparenchymal hemorrhage or mass effect. The leal-white junction is well differentiated. Cerebellum: Unremarkable. Mass effect: No evidence of midline shift. Intracranial vasculature: unremarkable Soft tissues: Normal. Calvarium/osseous structures: No depressed skull fracture. Paranasal sinuses and mastoid air cells: Clear. Visualized orbits: Orbital contents are intact. Cervical spine: Fracture: None. Osseous structures: Multilevel degenerative disc disease changes with endplate spurring and disc oste ophyte complex's. Vertebral alignment: Within normal limits. Spinal canal/Neural Foramina: No evidence of significant spinal canal narrowing. No evidence for sign ificant neural foraminal stenosis. Neck soft tissues: Prevertebral soft tissues are within normal limits. Other: The airway is patent. The lung apices are clear. IMPRESSION: 1. No acute intracranial process. 2. No evidence of cervical spine fracture. 3. Mild multilevel degenerative disc disease. [facility], , 12/28/2023 7:30 PM
[2023-12-28] MEDS: IBUPROFEN 600 MG STARTER PACK 4 TAB BTL PO STA (19:49)
[2023-12-28 19:53] VITALS: BP 118/74; PULSE 83
== END 2023-12-28 19:51 | disposition home or self-care (01) ==
LOC: EC 18:13
DX: S16.1XXA Strain of muscle, fascia and tendon at neck level, initial encounter (principal); W22.8XXA Striking against or struck by other objects, initial encounter
CPT/HCPCS: 72125; 70450; 99284; 96372 ×2; J2360; J1885